=== PATIENT | female | born 1995 | race Hispanic/Latino ===

== ENCOUNTER 2017-06-17 19:09 | Emergency (ER) | payer BC ==
[2017-06-17 19:21] VITALS: BP 131/69; PULSE 97; RESP 16; TEMP 99.3; O2SAT 98
--- NOTE | 2017-06-17 21:17 | ED PDOC ---
HPI: General Adult Time Seen by Provider: 06/17/17 20:31 Chief Complaint (Nursing): Back Pain Chief Complaint (Provider): flank pain and chest pain History Per: Patient History/Exam Limitations: no limitations Onset/Duration Of Symptoms: Days Current Symptoms Are (Timing): Intermittent Episodes Additional Complaint(s): Patient arrives to ER for two complaints. States that she is having intermittent midsternal CP that comes as a "shock" and then lingers as a duller pain for 5 minutes. Denies radiation or SOB. States it comes when she is sedentary usually, states that it does not happen during exercise or that she does not notice it. States that she had similar pain last year but it went away and now its back. No family hx of significant cardiac disease. Other complain is 1.5 weeks of R flank pain, worsening, worse with movement, occasional dysuria. Denies fevers/chills at home. States it feels similarly to prior UTI/kidney infection. Assoc. w/ nausea, no vomiting. Past Medical History Reviewed: Historical Data, Nursing Documentation, Vital Signs Vital Signs: Last Vital Signs Temp 99.3 F 06/17/17 19:14 Pulse 97 H 06/17/17 19:14 Resp 16 06/17/17 19:14 BP 131/69 06/17/17 19:14 Pulse Ox 98 06/17/17 21:19 - Medical History PMH: Anemia (iron deficiency) - Family History Family History: States: Hypertension - Home Medications Home Medications: Ambulatory Orders Medication Instructions Recorded Nitrofurantoin Macrocrystals 100 mg PO BID 5 Days cap 06/17/17 [Macrobid] - Allergies Allergies/Adverse Reactions: Allergies Allergy/AdvReac Type Severity Reaction Status Date / Time No Known Allergies Allergy Verified 06/17/17 19:14 Review of Systems ROS Statement: Except As Marked, All Systems Reviewed And Found Negative Cardiovascular: Positive for: Chest Pain Gastrointestinal: Positive for: Nausea, Abdominal Pain (flank) Physical Exam - Reviewed Nursing Documentation Reviewed: Yes Vital Signs Reviewed: Yes - Physical Exam Appears: Positive for: Well, Non-toxic, No Acute Distress Head Exam: Positive for: ATRAUMATIC, NORMAL INSPECTION, NORMOCEPHALIC Skin: Positive for: Normal Color, Warm, DRY Eye Exam: Positive for: EOMI, Normal appearance, PERRL ENT: Positive for: Normal ENT Inspection Neck: Positive for: Normal, Painless ROM Cardiovascular/Chest: Positive for: Regular Rate, Rhythm Respiratory: Positive for: CNT, Normal Breath Sounds Gastrointestinal/Abdominal: Positive for: Normal Exam, Bowel Sounds, Soft. Negative for: Tenderness (flank tenderness, R, mild) Back: Positive for: Normal Inspection Extremity: Positive for: Normal ROM Neurologic/Psych: Positive for: Alert, Oriented - Laboratory Results Result Diagrams: 06/17/17 21:25 06/17/17 21:25 - ECG ECG Rhythm: Positive for: Normal QRS, Normal ST Segment, Sinus Rhythm O2 Sat by Pulse Oximetry: 98 Pulse Ox Interpretation: Normal Medical Decision Making Medical Decision Making: A/P: Hx of kidney infection p/w flank pain and CP -CP likely not cardiac, but will check labs to r/o cardiac involvement, CXR as well -flank pain likely related to UTI/kidney infection 2130 Pt. feeling better, has evidence of UTI. Will precribe ABx. Told to f/u w/ Dr. Whitten for possible holter monitoring. Return precuations discusse.d Disposition - Clinical Impression Clinical Impression: UTI (urinary tract infection), Chest pain - Disposition Referrals: [facility] [Outside] Shaun Whitten MD [Staff Provider] - Disposition: Routine/Home Disposition Time: 21:30 Condition: STABLE Prescriptions: Nitrofurantoin Macrocrystals [Macrobid] 100 mg PO BID 5 Days cap Instructions: Chest Pain (ED), Urinary Tract Infection in Women (DC) Forms: [employer] (Grenadian)
[2017-06-17 21:59] LABS: HEMOGLOBIN 11.1 g/dL (12.0-16.0); MEAN CELL VOLUME 91.4 fl (81.0-99.0); MEAN CORPUSCULAR HEMOGLOBIN 29.9 pg (27.0-31.0); MEAN CORPUSCULAR HGB CONC 32.7 g/dL (33.0-37.0); RBC 3.7 Mil/uL (3.80-5.20); RED CELL DISTRIBUTION WIDTH 12.5 % (11.5-14.5); WHITE BLOOD COUNT 9.8 K/uL (4.8-10.8)
[2017-06-17 22:29] LABS: BLOOD UREA NITROGEN 7 mg/dl (7-17); CALCIUM 9.3 mg/dL (8.4-10.2); GFR AFRICAN-AMERICAN > 60; GFR NON-AFRICAN AMERICAN > 60
[2017-06-17 22:54] LABS: PH,URINE 6.5 (5.0-8.0); URINE BILIRUBIN NEGATIVE (NEGATIVE); URINE BLOOD NEGATIVE (NEGATIVE); URINE CLARITY CLEAR (Clear); URINE COLOR YELLOW (YELLOW); URINE GLUCOSE (UA) NEGATIVE (Normal)
[2017-06-17 22:55] LABS: URINE LEUKOCYTE ESTERASE TRACE Leu/uL (Negative); URINE NITRATE NEGATIVE (NEGATIVE); URINE PROTEIN NEGATIVE (NEGATIVE); URINE UROBILINOGEN 0.2 mg/dL (0.2-1.0)
[2017-06-17 23:00] LABS: SQUAMOUS EPITHIAL -2 /hpf (0-5); URINE BACTERIA FEW (<OCC)
--- NOTE | 2017-06-18 09:40 | RAD ---
HISTORY: midsternal CP COMPARISON: No prior. TECHNIQUE: Chest PA and lateral FINDINGS: LUNGS: No active pulmonary disease. PLEURA: No significant pleural effusion identified. No pneumothorax apparent. CARDIOVASCULAR: Normal. OSSEOUS STRUCTURES: No significant abnormalities. VISUALIZED UPPER ABDOMEN: Normal. OTHER FINDINGS: None. IMPRESSION: No active disease.
== END 2017-06-17 23:27 | disposition home or self-care (01) ==
LOC: H.ER 19:09
DX: N39.0 Urinary tract infection, site not specified (principal)

== ENCOUNTER 2017-09-19 16:30 | Emergency (ER) | payer BC ==
[2017-09-19 16:42] VITALS: RESP 16; O2SAT 100
--- NOTE | 2017-09-19 17:50 | ED PDOC ---
HPI: Female Pain Time Seen by Provider: 09/19/17 16:47 Chief Complaint (Nursing): Female Genitourinary History Per: Patient History/Exam Limitations: no limitations Onset/Duration Of Symptoms: Days Current Symptoms Are (Timing): Still Present Quality Of Discomfort: "Pain" Associated Symptoms: Nausea (mild). denies: Vomiting, Diarrhea, Urinary Symptoms Additional Complaint(s): 22 year old female with a history of kidney infection and anemia presents to the ED complaining of constant right lower quadrant abdominal pain. Reports it worsens with movement and radiates to her back and groin area. States the pain has become worse since onset and also has mild nausea. Patient mentions that due to kidney infection, she feels pain by her right flank. She says, she has had similar intermittent pain for a year and it occurs only during intercourse, not every time, it is transient. Denies vomiting, diarrhea, vaginal discharge or bleeding, urinary frequency, dysuria, hematuria, and no change in appetite. PMD: No Primary Provider Past Medical History Reviewed: Historical Data, Nursing Documentation, Vital Signs Vital Signs: Last Vital Signs Temp 98.1 F 09/19/17 16:39 Pulse 90 09/19/17 16:39 Resp 16 09/19/17 16:39 BP 131/85 09/19/17 16:39 Pulse Ox 100 09/19/17 16:39 - Medical History PMH: Anemia (iron deficiency) Other PMH: Kidney Infection - Surgical History Surgical History: No Surg Hx - Family History Family History: States: Hypertension - Social History Current smoker - smoking cessation education provided: Yes (tobacco) Alcohol: < 2 Drinks/Day Drugs: Denies - Home Medications Home Medications: Ambulatory Orders Medication Instructions Recorded Nitrofurantoin Macrocrystals 100 mg PO BID 5 Days cap 06/17/17 [Macrobid] Ketorolac Tromethamine [Toradol] 10 mg PO Q8 PRN #30 tab 09/19/17 - Allergies Allergies/Adverse Reactions: Allergies Allergy/AdvReac Type Severity Reaction Status Date / Time No Known Allergies Allergy Verified 06/17/17 19:14 Review of Systems ROS Statement: Except As Marked, All Systems Reviewed And Found Negative (As per HPI, otherwise negative) Gastrointestinal: Positive for: Nausea (mild), Abdominal Pain (right lower quadrant). Negative for: Vomiting, Diarrhea Genitourinary Female: Negative for: Dysuria, Frequency, Hematuria, Vaginal Discharge, Vaginal Bleeding Musculoskeletal: Positive for: Back Pain (right flank) Physical Exam - Reviewed Nursing Documentation Reviewed: Yes Vital Signs Reviewed: Yes - Physical Exam Appears: Positive for: Well, Non-toxic, No Acute Distress Head Exam: Positive for: ATRAUMATIC, NORMOCEPHALIC Skin: Positive for: Warm, Dry Respiratory: Negative for: Accessory Muscle Use, Respiratory Distress Gastrointestinal/Abdominal: Positive for: Soft, Tenderness (mild to RLQ, deep to palpation). Negative for: Normal Exam, Bowel Sounds, Mass, Distended, Guarding, Rebound Back: Positive for: R CVA Tenderness (mild). Negative for: L CVA Tenderness, Vertebral Tenderness, Decreased ROM Extremity: Positive for: Normal ROM. Negative for: Deformity Lymphatic: Negative for: Adenopathy Neurologic/Psych: Positive for: Alert. Negative for: Motor/Sensory Deficits - Laboratory Results Result Diagrams: 09/19/17 17:52 09/19/17 17:52 - ECG O2 Sat by Pulse Oximetry: 100 (RA) Pulse Ox Interpretation: Normal Medical Decision Making Medical Decision Making: Time: 1655 Initial Impression: right pelvic pain Differential Diagnosis includes but is not limited to: UTI, ovarian cyst, ovarian torsion Initial Plan: --CMP --ED Urine --ED Urine Dipstick --CBC w/ Differential --IV Insertion --Transvaginal US --Reevaluation Scribe Attestation: Documented by Jessica Mcconnell, acting as a scribe for Dulce Vieyra MD Provider Scribe Attestation: All medical record entries made by the Scribe were at my direction and personally dictated by me. I have reviewed the chart and agree that the record accurately reflects my personal performance of the history, physical exam, medical decision making, and the department course for this patient. I have also personally directed, reviewed, and agree with the discharge instructions and disposition. Disposition - Clinical Impression Clinical Impression: Ovarian cyst, Pelvic pain - Disposition Referrals: [facility] [place] [Outside] - 09/21/17 (YOU WILL BE CONTACTED THURSDAY FOR REEVALUATION AND TO ASSIST WITH FOLLOW UP. YOU SHOULD FOLLOW UP WITH BOTH A PRIMARY CARE PHYSICIAN AND SALVAGE CLERK BY THE END OF THE WEEK.) Disposition: Routine/Home Disposition Time: 19:00 Condition: STABLE Prescriptions: Ketorolac Tromethamine [Toradol] 10 mg PO Q8 PRN #30 tab PRN Reason: PAIN Instructions: Ovarian Cysts, Acute Pelvic Pain (DC) Forms: [employer] (Ecuadorean)
[2017-09-19 17:57] LABS: BASO # 0.1 K/uL (0.0-0.2); BASO % 0.7 % (0.0-2.0); EOS # 0.3 K/uL (0.0-0.7); EOS % 3.6 % (0.0-4.0); HEMOGLOBIN 12.7 g/dL (12.0-16.0); LYMPH # 1.4 K/uL (1.0-4.3); LYMPH % 16.6 % (20.0-40.0); MEAN CELL VOLUME 91.8 fl (81.0-99.0); MEAN CORPUSCULAR HGB CONC 33.8 g/dL (33.0-37.0); MONO # 0.6 K/uL (0.0-0.8); NEUT # 6.1 K/uL (1.8-7.0); NEUT % 72.1 % (50.0-75.0); RBC 4.09 Mil/uL (3.80-5.20); RED CELL DISTRIBUTION WIDTH 13.4 % (11.5-14.5); WHITE BLOOD COUNT 8.5 K/uL (4.8-10.8)
[2017-09-19 18:08] LABS: ALB/GLOB RATIO 1.2 (1.0-2.1); ALBUMIN 4.3 g/dL (3.5-5.0); CALCIUM 9.3 mg/dL (8.4-10.2); GFR AFRICAN-AMERICAN > 60; GFR NON-AFRICAN AMERICAN > 60
[2017-09-19 18:18] LABS: ALT/SGPT 24 U/L (9-52); AST/SGOT 32 U/L (14-36); BLOOD UREA NITROGEN 15 mg/dl (7-17)
[2017-09-19 19:42] VITALS: BP 127/73; PULSE 73; TEMP 98.5
--- NOTE | 2017-09-20 08:46 | US ---
HISTORY: RIGHT pelvic pain r/o ov torsion/ruptured cyst COMPARISON: None available. TECHNIQUE: Transabdominal and transvaginal FINDINGS: UTERUS: Measures 6.0 x 3.7 x 2.5 cm. Normal in size and appearance. No fibroid or other mass lesion seen. ENDOMETRIUM: Measures to mm in diameter. Unremarkable. CERVIX: No cervical abnormality identified. RIGHT OVARY: Measures 3.3 x 3.1 x 2.0 cm. No solid mass. Normal flow. LEFT OVARY: Measures 2.8 x 3.0 x 1.9 cm. No solid mass. Normal flow. FREE FLUID: No significant free fluid noted. OTHER FINDINGS: None. IMPRESSION: Unremarkable pelvic ultrasound. Preliminary interpretation of this examination was reported by [facility] at 7:24 p.m. on 09/19/2017. There is concurrence of this report with the preliminary interpretation.
== END 2017-09-19 19:53 | disposition home or self-care (01) ==
LOC: H.ER 16:30
DX: N83.201 Unspecified ovarian cyst, right side (principal)

== ENCOUNTER 2017-10-02 12:07 | Emergency (ER) | payer BC ==
[2017-10-02 13:02] VITALS: BP 116/73; PULSE 81; RESP 16; TEMP 97.6; O2SAT 100
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
--- NOTE | 2017-10-02 15:03 | CT ---
PROCEDURE: CT HEAD WITHOUT CONTRAST. HISTORY: s/p head injury yest COMPARISON: None available. TECHNIQUE: Axial computed tomography images were obtained through the head/brain without intravenous contrast. Radiation dose: Total exam DLP = 790.4 mGy-cm. This CT exam was performed using one or more of the following dose reduction techniques: Automated exposure control, adjustment of the mA and/or kV according to patient size, and/or use of iterative reconstruction technique. FINDINGS: HEMORRHAGE: No intracranial hemorrhage. BRAIN: No mass effect or edema. No atrophy or chronic microvascular ischemic changes. VENTRICLES: Unremarkable. No hydrocephalus. CALVARIUM: Unremarkable. PARANASAL SINUSES: Unremarkable as visualized. No significant inflammatory changes. MASTOID AIR CELLS: Unremarkable as visualized. No inflammatory changes. OTHER FINDINGS: None. IMPRESSION: No acute intracranial pathology.
--- NOTE | 2017-10-02 15:05 | CT ---
PROCEDURE: CT MAXILLOFACIAL BONES WITHOUT CONTRAST HISTORY: s/p head injury yest COMPARISON: None TECHNIQUE: Contiguous axial CT images of the maxillofacial bones were obtained. Coronal and sagittal reformats were generated. Radiation dose: Total exam DLP = 759.6 mGy-cm. This CT exam was performed using one or more of the following dose reduction techniques: Automated exposure control, adjustment of the mA and/or kV according to patient size, and/or use of iterative reconstruction technique. FINDINGS: NASAL BONES: Unremarkable. ORBITS: Unremarkable. PARANASAL SINUSES/ MASTOIDS: Clear. MAXILLA: Unremarkable. MANDIBLE/ TEMPOROMANDIBULAR JOINTS: Unremarkable. SKULL BASE: Unremarkable. TEMPORAL BONES: Middle ears and mastoid grossly unremarkable. OTHER FINDINGS: None. IMPRESSION: Unremarkable non contrast enhanced CT of the maxillofacial bones.
== END 2017-10-02 15:26 | disposition home or self-care (01) ==
LOC: H.ER 12:07
DX: S06.0X0A Concussion without loss of consciousness, initial encounter (principal); W22.8XXA Striking against or struck by other objects, initial encounter; Y92.89 Other specified places as the place of occurrence of the external cause

== ENCOUNTER 2018-06-23 18:20 | Emergency (ER) | payer BC ==
[2018-06-23] MEDS ORDERED: Sodium Chloride 0.9% 1,000 ML IV STA (19:22)
--- NOTE | 2018-06-23 19:28 | ED PDOC ---
HPI: Chest Pain Time Seen by Provider: 06/23/18 18:59 Chief Complaint (Nursing): Dizziness/Lightheaded Chief Complaint (Provider): Dizziness/Lightheaded History Per: Patient History/Exam Limitations: no limitations Onset/Duration Of Symptoms: Days (x 1) Current Symptoms Are (Timing): Still Present Quality: "Pain" Associated Symptoms: denies: Nausea Additional Complaint(s): 22 year old female with a history of anemia presents to the ED for evaluation of right sided chest pain. Patient reports she was seen at an urgent care 4 days ago and diagnosed with a UTI for which is taking Bactrim DS BID. They called her today and informed her that she actually does not have one. Now, she is complaining of right sided chest pain radiating to her shoulder and down her arm. Patient also feels dehydrated and nauseous. Denies fever, vomiting, abdominal pain, diarrhea, dysuria and hematuria. PMD: none provided Past Medical History Reviewed: Historical Data, Nursing Documentation, Vital Signs Vital Signs: Last Vital Signs Temp 98.7 F 06/23/18 18:33 Pulse 84 06/23/18 18:33 Resp 16 06/23/18 18:33 BP 123/82 06/23/18 18:33 Pulse Ox 98 06/23/18 18:33 - Medical History PMH: Anemia (iron deficiency) - Surgical History Surgical History: No Surg Hx - Family History Family History: States: Unknown Family Hx, Hypertension - Home Medications Home Medications: Ambulatory Orders Medication Instructions Recorded Acetaminophen [Acetaminophen 8 650 mg PO Q8 PRN #24 tablet.er 10/02/17 Hour] Meclizine [Meclizine*] 25 mg PO Q6 PRN #12 tab 10/02/17 Famotidine [Pepcid] 20 mg PO BID #20 tab 06/23/18 Naproxen [Naprosyn] 500 mg PO BID PRN #15 tablet 06/23/18 Ondansetron ODT [Zofran ODT] 4 mg PO Q8H PRN #20 odt 06/23/18 - Allergies Allergies/Adverse Reactions: Allergies Allergy/AdvReac Type Severity Reaction Status Date / Time No Known Allergies Allergy Verified 06/23/18 18:32 NNEKA Risk Score for UA/NSTEMI - NNEKA Risk Score Age > 64: NO 3 or more CAD Risk Factors: NO Known CAD (Stenosis greater than 50%): NO Aspirin use in past 7 days: NO Severe Angina: NO EKG ST changes greater than 0.5mm: NO Positive Cardiac Marker: NO NNKEA Score: 0 Risk %: 5% Wells Criteria for PE - Wells Criteria for Pulmonary Embolism Clinical Signs and Symptoms of DVT: No P.E is #1 Diagnosis, or Equally Likely: No Heart Rate >100: No Immobilization at least 3 days;Surgery previous 4 weeks: No Previous, objectively diagnosed PE or DVT: No Hemoptysis: No Malignancy w/treatment within 6 months, or palliative: No Total Score: 0 Review of Systems ROS Statement: Except As Marked, All Systems Reviewed And Found Negative Constitutional: Negative for: Fever, Chills Cardiovascular: Positive for: Chest Pain (right sided chest pain radiating to shoulder and arm) Gastrointestinal: Positive for: Nausea. Negative for: Vomiting, Abdominal Pain, Diarrhea Genitourinary Female: Negative for: Dysuria, Frequency, Incontinence, Hematuria Physical Exam - Reviewed Nursing Documentation Reviewed: Yes Vital Signs Reviewed: Yes - Physical Exam Appears: Positive for: Non-toxic, No Acute Distress Head Exam: Positive for: ATRAUMATIC, NORMAL INSPECTION, NORMOCEPHALIC Skin: Positive for: Normal Color, Warm, Dry Eye Exam: Positive for: EOMI, Normal appearance, PERRL Neck: Positive for: Normal, Painless ROM, Supple Cardiovascular/Chest: Positive for: Regular Rate, Rhythm. Negative for: Murmur Respiratory: Positive for: Normal Breath Sounds. Negative for: Respiratory Distress Gastrointestinal/Abdominal: Positive for: Normal Exam, Bowel Sounds, Soft. Negative for: Tenderness Back: Positive for: Normal Inspection. Negative for: L CVA Tenderness, R CVA Tenderness Extremity: Positive for: Normal ROM (x 4). Negative for: Deformity Neurologic/Psych: Positive for: Alert, Oriented (x 3). Negative for: Motor/Sensory Deficits - Laboratory Results Result Diagrams: 06/23/18 20:10 06/23/18 20:10 - ECG Interpretation Of ECG: NSR @ 77, no ST-T changes. O2 Sat by Pulse Oximetry: 98 (RA) Pulse Ox Interpretation: Normal - Radiology X-Ray: Interpreted by Me X-Ray Interpretation: No Acute Disease Medical Decision Making Medical Decision Makin:21 Impression: chest pain Initial Plan: --EKG --CBC --CMP --Urine dip --Urine preg --Toradol 15 mg IM --Influenza AB --UA Scribe Attestation: Documented by Violet Nguyen acting as a scribe for Cherelle Vaca MD Provider Scribe Attestation: All medical record entries made by the Scribe were at my direction and personally dictated by me. I have reviewed the chart and agree that the record accurately reflects my personal performance of the history, physical exam, medical decision making, and the department course for this patient. I have also personally directed, reviewed, and agree with the discharge instructions and disposition. Disposition - Clinical Impression Clinical Impression: Myalgia - Disposition Condition: STABLE Additional Instructions: FOLLOW-UP WITH PMD WITHIN 2 DAYS FOR REEVALUATION. Prescriptions: Famotidine [Pepcid] 20 mg PO BID #20 tab Naproxen [Naprosyn] 500 mg PO BID PRN #15 tablet PRN Reason: Pain, Moderate (4-7) Ondansetron ODT [Zofran ODT] 4 mg PO Q8H PRN #20 odt PRN Reason: Nausea/Vomiting Instructions: Muscle and Bone Pain (DC) Forms: [employer] (Dutch)
[2018-06-23 20:14] LABS: BASO # 0.1 K/uL (0.0-0.2); BASO % 1.3 % (0.0-2.0); EOS # 0.2 K/uL (0.0-0.7); EOS % 3.3 % (0.0-4.0); HEMOGLOBIN 12.1 g/dL (12.0-16.0); LYMPH % 37.7 % (20.0-40.0); MEAN CELL VOLUME 93.3 fl (81.0-99.0); MEAN CORPUSCULAR HGB CONC 33.2 g/dL (33.0-37.0); MEAN PLATELET VOLUME 9.1 fl (7.2-11.7); MONO # 0.5 K/uL (0.0-0.8); MONO % 8.7 % (0.0-10.0); NEUT # 2.6 K/uL (1.8-7.0); NRBC % 0.1 % (0.0-0.0); RBC 3.92 Mil/uL (3.80-5.20); RED CELL DISTRIBUTION WIDTH 12.4 % (11.5-14.5); WHITE BLOOD COUNT 5.3 K/uL (4.8-10.8)
[2018-06-23 20:23] LABS: ALB/GLOB RATIO 1.5 (1.0-2.1); ALBUMIN 4.6 g/dL (3.5-5.0); ALT/SGPT 22 U/L (9-52); AST/SGOT 20 U/L (14-36); BLOOD UREA NITROGEN 11 mg/dl (7-17); CALCIUM 9.5 mg/dL (8.4-10.2); GFR NON-AFRICAN AMERICAN > 60
[2018-06-23 21:30] LABS: SQUAMOUS EPITHIAL 5 /hpf (0-5); URINE BILIRUBIN NEGATIVE (NEGATIVE); URINE BLOOD NEGATIVE (NEGATIVE); URINE CLARITY CLEAR (Clear); URINE COLOR STRAW (YELLOW); URINE GLUCOSE (UA) NEG (NEGATIVE); URINE LEUKOCYTE ESTERASE NEG Leu/uL (Negative); URINE PROTEIN NEGATIVE (NEGATIVE); URINE UROBILINOGEN 0.2-1.0 mg/dL (0.2-1.0)
[2018-06-23 22:21] VITALS: BP 125/69; PULSE 76; RESP 17; TEMP 98.1; O2SAT 99
--- NOTE | 2018-06-24 08:13 | RAD ---
Date of service: 06/23/2018 HISTORY: R sided CP COMPARISON: Chest radiographs 06/17/2017. TECHNIQUE: Chest PA and lateral FINDINGS: LUNGS: No active pulmonary disease. PLEURA: No significant pleural effusion identified. No pneumothorax apparent. CARDIOVASCULAR: No aortic atherosclerotic calcification present. Normal cardiac size. No pulmonary vascular congestion. OSSEOUS STRUCTURES: No significant abnormalities. VISUALIZED UPPER ABDOMEN: Normal. OTHER FINDINGS: None. IMPRESSION: No interval acute cardiopulmonary disease appreciated.
--- NOTE | 2018-06-24 08:54 | CARD ---
APPROVED REPORT Date of service: 06/23/2018 EKG Measurement Heart [id number] NV 148P-5 [id number] <Conclusion> Normal sinus rhythm Normal ECG
== END 2018-06-23 21:48 | disposition home or self-care (01) ==
LOC: H.ER 18:20
DX: M79.10 Myalgia, unspecified site (principal)
CPT/HCPCS: 71046; 80053; 81003; 81025; 85025; 87804; 93005; 96361; 96374; 99285; J1885; J7030